=== PATIENT | female | born 1930 | race Caucasian/White ===

== ENCOUNTER 2017-01-27 15:37 | Emergency (ER) | payer MEDICARE ==
[~2017-01-27] VITALS: Ht 157.5 cm; Wt 77.3 kg
[~2017-01-27 15:37] MED LIST: ASPIRIN 32325 MG/TAB PO; ASPIRIN 81M81 MG/TA2 PO; BLOOD PRESSURE; BUFFERED ASPIR325 M1 PO; CEPHALEXIN500 M1 PO; CHLORTHALIDONE25 MG PO; COZAAR 50MG50 MG/TAB PO; DRY EYES OP; ENALAPRIL PO; FERROUS SU325 MG/TAB PO; FISH OIL1 IU PO; FLAXSEED OIL1 CAP PO; FOLIC ACID PO; GARLIC PO; GARLIC SUPPLEM300 MG PO; HYGROTON25 MG PO; LEVOTHYROXINE PO; MULTIPLE VITAMI1 TAB PO; MVI PO; NORCO 325 MG-7.1 TAB PO; OMNICEF 300MG300 MG PO; PHENERGAN 25 TA25 MG PO; SYNTHROID0.137 MG PO; TUMERIC; ULTRAM 50MG TAB50 MG PO; VITAMIN C BUFF500 MG PO; VITAMIN C1 TAB PO; VITAMIN E200 I1 PO; WATER PILL; ZOFRAN 4MG T4 MG/TAB PO
[2017-01-27 15:38] VITALS: TEMP 97.8
[2017-01-27] MEDS ORDERED: HYGROTON 2525 MG/TAB (15:46)
[2017-01-27 16:20] LABS: BASO # 0.1 (0.0-0.2); BASO % 1.2 % (0.0-2.0); EOS # 0.2 (0.0-0.7); EOS % 2.2 % (0-4.0); GRAN # 4.8 (1.4-6.5); GRAN % 65.4 % (42.2-75.2); HEMATOCRIT 40.8 % (37.0-47.0); HEMOGLOBIN 13.5 g/dl (12.5-16.0); LYMPH # 1.8 (1.2-3.4); LYMPH % 24.6 % (20.0-51.0); MEAN CELL VOLUME 87 fl (80.0-100.0); MEAN CORPUSCULAR HEMOGLOBIN 29 pg (27.0-31.0); MEAN CORPUSCULAR HGB CONC 33 g/dl (33.0-37.0); MEAN PLATELET VOLUME 11.3 fl (7.4-10.4); MONO # 0.5 (0.1-0.6); MONO % 6.1 % (1.7-9.3); PLATELET COUNT 169 K/mm3 (130-400); REDCELL DISTRIBUTION WIDTH-CV 12.4 % (11.5-14.5); WHITE BLOOD COUNT 7.4 K/mm3 (4.8-10.8)
[2017-01-27 16:37] LABS: ADJUSTED CALCIUM 9.3 mg/dL (8.4-10.2); ALANINE AMINOTRANSFERASE 28 U/L (9-52); ALBUMIN 3.9 gm/dL (3.5-5.0); ALKALINE PHOSPHATASE 74 U/L (50-136); ANION GAP 14 mmol/L (7-16); BILIRUBIN,TOTAL 0.8 mg/dL (0.0-1.0); BLOOD UREA NITROGEN 21 mg/dL (7-17); CALCIUM 9.2 mg/dL (8.4-10.2); CARBON DIOXIDE 28 mmol/L (22-30); CHLORIDE 99 mmol/L (98-107); CREATININE, serum 0.75 mg/dL (0.52-1.25); GLUCOSE 148 mg/dL (74-106); LIPASE 75 U/L (23-300); POTASSIUM 3.6 mmol/L (3.4-5.0); SODIUM 141 mmol/L (137-145); TOTAL PROTEIN 7.1 gm/dL (6.4-8.2)
[2017-01-27 16:47] LABS: B-TYPE NATRIURETIC PEPTIDE 103 pg/mL (0-450)
[2017-01-27 16:52] LABS: TROPONIN-I < 0.012 ng/mL (0.000-0.034)
[2017-01-27 17:05] LABS: THYROID STIMULATING HORMONE 0.587 uIU/mL (0.465-4.680)
[2017-01-27 17:42] VITALS: BP 131/57; PULSE 62
== END 2017-01-27 18:10 | disposition home or self-care (01) ==
LOC: COL.ER 15:37
PROVIDERS: Emergency Medicine
DX: R07.9 Chest pain, unspecified (principal); R47.01 Aphasia; R00.2 Palpitations; F17.210 Nicotine dependence, cigarettes, uncomplicated; I10 Essential (primary) hypertension; Z86.73 Personal history of transient ischemic attack (TIA), and cerebral infarction without residual deficits

== ENCOUNTER 2018-08-31 08:41 | Emergency (ER) | payer MEDICARE ==
[~2018-08-31] VITALS: Ht 157.5 cm; Wt 68.2 kg
[~2018-08-31 08:41] MED LIST changes: +HYGROTON 2525 MG/TAB
[2018-08-31 08:50] VITALS: BP 121/34; TEMP 98
[2018-08-31] MEDS ORDERED: FAMVIR 500500 MG/TAB PO (09:18)
[2018-08-31 09:38] VITALS: PULSE 68
== END 2018-08-31 09:38 | disposition home or self-care (01) ==
LOC: COL.ER 08:41
DX: R21 Rash and other nonspecific skin eruption (principal); B02.9 Zoster without complications; E03.9 Hypothyroidism, unspecified; Z98.890 Other specified postprocedural states